=== PATIENT | female | born 1955 | race Caucasian/White ===

== ENCOUNTER 2016-03-31 09:31 | Emergency (ER) | payer BC ==
[~2016-03-31] VITALS: Ht 165.1 cm; Wt 99.8 kg
[~2016-03-31 09:31] MED LIST: ASPI-991 PO; CARV3.122 PO; CHOL100044 PO; LISI5TAB45 PO; MULT-24 PO; OMEG10006 PO
[2016-03-31] MEDS ORDERED: IV NS 0.9% 1,000 ML BAG IV ONE (10:00)
[2016-03-31] MEDS ORDERED: IV NS 0.9% 1,000 ML ONE (10:06)
[2016-03-31] MEDS ORDERED: IV SET PRIMARY PUMP SET 1 EA INFUS.SET MC ONE (10:06)
[2016-03-31 10:15] LABS: BASOPHILS # (AUTO) 0.1 /CMM (0.0-0.2); DIFF TOTAL % 100 %; EOSINOPHILS # (AUTO) 0.1 /CMM (0.0-0.7); EOSINOPHILS % (AUTO) 1.3 % (0.0-6.0); HEMATOCRIT 42 % (33-45); HEMOGLOBIN 13.7 g/dL (11.5-14.8); LYMPHOCYTES # (AUTO) 1.4 /CMM (0.8-4.8); LYMPHOCYTES % (AUTO) 18.5 % (20.0-44.0); MEAN CORPUSCULAR HEMOGLOBIN 29 PG (26.0-33.0); MEAN CORPUSCULAR HGB CONC 32 g/dl (31.0-36.0); MEAN CORPUSCULAR VOLUME 90 fL (82-100); MONOCYTES # (AUTO) 0.4 /CMM (0.1-1.30); NEUTROPHILS # (AUTO) 5.6 /CMM (1.8-8.9); NEUTROPHILS % (AUTO) 74.2 % (43.0-81.0); PLATELET COUNT (AUTO) 243 /CMM (150-450); WHITE BLOOD COUNT (AUTO) 7.6 K/uL (4.3-11.0)
[2016-03-31 10:39] LABS: ANION GAP 12 (5-14); CALCIUM, SERUM 8.9 mg/dL (8.5-10.1); CARBON DIOXIDE 28 mmol/L (21-32); CHLORIDE 101 mmol/L (98-107); CREATININE 0.9 mg/dL (0.6-1.3); GFR 64 mL/min (>60); GLUCOSE 113 mg/dL (74-106); POTASSIUM 3.9 mmol/L (3.5-5.1); SODIUM SERUM 137 mmol/L (136-145); UREA NITROGEN, BLOOD 12 mg/dL (7-18)
[2016-03-31 10:40] LABS: INR 0.99 (0.87-1.13); PROTHROMBIN TIME 10.4 SECS (9.5-12.7)
[2016-03-31 10:43] LABS: ALANINE AMINOTRANSFERASE 37 U/L (12-78); ASPARTATE AMINOTRANSFERASE 22 U/L (15-37); BILIRUBIN,DIRECT 0.1 mg/dL (0.0-0.2); BILIRUBIN,TOTAL 0.6 mg/dL (0.2-1.0); INDIRECT BILIRUBIN 0.5 mg/dL (0.0-1.1); TOTAL PROTEIN, SERUM 7.4 g/dL (6.4-8.2); TROPONIN I < 0.017 ng/mL (0.00-0.056)
[2016-03-31 11:09] LABS: THYROID STIMULATING HORMONE 1.086 uIU/mL (0.358-3.74)
[2016-03-31 11:42] LABS: KETONES,URINE Negative (NEGATIVE); LEUKOCYTE ESTERASE ,URINE Trace (NEGATIVE); PH,URINE 6.5 (5.0-8.0)
[2016-03-31 11:46] LABS: ADD UA MICROSCOPIC YES
[2016-03-31 11:50] LABS: RBC,URINE 0-2 /HPF (0-2); WBC,URINE 0-2 /HPF (0-3)
[2016-03-31 11:51] LABS: ADD URINE CULTURE NO
[2016-03-31 12:10] VITALS: BP 142/81
== END 2016-03-31 12:11 | disposition home or self-care (01) ==
LOC: ER 09:32
DX: R42 Dizziness and giddiness (principal); I10 Essential (primary) hypertension; I42.9 Cardiomyopathy, unspecified; R79.1 Abnormal coagulation profile; Z79.82 Long term (current) use of aspirin
CPT/HCPCS: 36415; 70450; 71010; 80048; 80076; 81001; 84443; 84484; 85025; 85730; 87086; 93005; 96360; 99285; A4606; J7030; Z7610; 81000-TC

== ENCOUNTER 2024-08-12 13:28 | Inpatient (IN) | payer MEDICARE, BC ==
[~2024-08-12] VITALS: Ht 165.1 cm; Wt 88.5 kg
[~2024-08-12 13:28] MED LIST changes: +ASPI-1420 PO; -ASPI-991 PO; +LISI5TAB24 PO; -LISI5TAB45 PO
[2024-08-12 13:55] LABS: PLATELET COUNT (AUTO) 255 K/uL (150-450); RED BLOOD CELL COUNT(AUTO) 4.45 MIL/uL (4.0-5.2); RED CELL DISTRIBUTION WIDTH 13.0 % (11.5-15.0); WHITE BLOOD COUNT (AUTO) 10.9 K/uL (4.3-11.0)
[2024-08-12 14:03] LABS: CALCIUM, SERUM 9.1 mg/dL (8.5-10.1); CREATININE 1.0 mg/dL (0.6-1.3); SODIUM SERUM 143 mmol/L (136-145); UREA NITROGEN, BLOOD 12 mg/dL (7-18)
[2024-08-12] MEDS: IV NS 0.9% 1,000 ML BAG IV ONE ×2 (14:03→14:38)
[2024-08-12 14:15] LABS: ASPARTATE AMINOTRANSFERASE 27 U/L (15-37); TOTAL PROTEIN, SERUM 7.7 g/dL (6.4-8.2)
[2024-08-12] MEDS ORDERED: ASPIRIN 325 MG TABLET ONE (15:04)
[2024-08-12] MEDS: ASPIRIN 325 MG TABLET PO ONE (15:06)
[2024-08-12] MEDS ORDERED: CARV3.12 PO (15:10)
[2024-08-12 16:00] VITALS: BP 135/85; TEMP 98.4; O2SAT 98
[2024-08-12] MEDS ORDERED: POTASSIUM CHLORIDE 20 MEQ POWDER PACKET ONE (16:06)
[2024-08-12] MEDS: POTASSIUM CHLORIDE 20 MEQ POWDER PACKET GT SCH (16:11)
[2024-08-12] MEDS ORDERED: ONDANSETRON HCL/PF 4 MG/2 ML VIAL IVP PRN (16:30)
[2024-08-12] MEDS ORDERED: MAG HYDROX/AL HYDROX/SIMETH 30 ML UDC PO PRN (16:30)
[2024-08-12] MEDS ORDERED: Z GUARD REMEDY 4 OZ OINT TP PRN (16:30)
[2024-08-12] MEDS ORDERED: ACETAMINOPHEN 325 MG TABLET PO PRN (16:30)
[2024-08-12] MEDS ORDERED: MAGNESIUM HYDROXIDE 30 ML UDC PO PRN (16:30)
[2024-08-12 17:00] VITALS: BP 135/85; TEMP 98.4; O2SAT 96
[2024-08-12] MEDS: IV NS 0.9% 1,000 ML IV PRN (18:02)
[2024-08-12 20:00] VITALS: BP 138/80; TEMP 98.1; O2SAT 97
[2024-08-13] VITALS: BP 120/65; TEMP 98.3; O2SAT 96
[2024-08-13 04:00] VITALS: BP 119/53; TEMP 98.2; O2SAT 98
[2024-08-13 07:30] VITALS: BP_SYST 124; BP_SYST 133; BP_SYST 134; BP_DIAS 69; BP_DIAS 73; BP_DIAS 76
[2024-08-13 07:44] LABS: PLATELET COUNT (AUTO) 220 K/uL (150-450); RED BLOOD CELL COUNT(AUTO) 4.25 MIL/uL (4.0-5.2); RED CELL DISTRIBUTION WIDTH 12.8 % (11.5-15.0); WHITE BLOOD COUNT (AUTO) 7.4 K/uL (4.3-11.0)
[2024-08-13 08:00] VITALS: BP_SYST 120; BP_SYST 134; BP_DIAS 65; BP_DIAS 78; TEMP 97.9; TEMP 98.2; O2SAT 95; O2SAT 96
[2024-08-13 08:18] LABS: CALCIUM, SERUM 8.6 mg/dL (8.5-10.1); CREATININE 0.7 mg/dL (0.6-1.3); PHOSPHORUS 3.3 mg/dL (2.5-4.9); SODIUM SERUM 139.0 mmol/L (136-145); UREA NITROGEN, BLOOD 7.0 mg/dL (7-18)
[2024-08-13 09:51] VITALS: BP 120/65
[2024-08-13] MEDS: CARVEDILOL 3.125 MG TABLET PO SCH (09:51)
== END 2024-08-13 12:39 | disposition home or self-care (01) | DRG 641 ==
LOC: ER 13:30 → TELE 15:44 → MED 08-13 11:12
PROVIDERS: ADMIT Internal Medicine; ATTEND Internal Medicine
DX: E86.0 Dehydration (principal); I10 Essential (primary) hypertension; E87.6 Hypokalemia; Z79.899 Other long term (current) drug therapy; S00.83XA Contusion of other part of head, initial encounter; W18.39XA Other fall on same level, initial encounter; Y93.89 Activity, other specified; Y92.512 Supermarket, store or market as the place of occurrence of the external cause
CPT/HCPCS: 36415; 70450-TC; 71045-TC; 80048-TC; 80076-TC; 82962-TC; 83735-TC; 84100-TC; 84484-TC; 85025-TC; 93307-TC; A4223; G0378; J7030